=== PATIENT | male | born 1950 | race Caucasian/White ===

== ENCOUNTER 2017-08-29 13:10 | Observation (INO) | payer OTHER, MEDICARE ==
[~2017-08-29] VITALS: Ht 177.8 cm; Wt 72.9 kg
[~2017-08-29 13:10] MED LIST: AMOX500 PO; ASPI325 PO; ASPI500 PO; CITA20 PO; CLIN300 PO; CLOP75 PO; CYCL10 PO; DULO60 PO; HYDACE10B PO; HYDACE5 PO; HYDACE5325 PO; ISODIN10 PO; LEVSOD125 PO; LEVSOD150; LISI5 PO; METO100ER PO; METO25 PO; METOPROLOL PO; NEBI10 PO; NITR.4TPA TOP; Nitrostat0.4 MG SL; OXYACE5T PO; PRAV20 PO; Prinivil10 MG PO; RANO500T PO; RXOXYACE PO; SIMV40 PO; Synthroid25 MCG PO; TRAZ100; TRAZ100 PO; TRAZ50 PO; [UNRECOGNIZED DRUG - REMARK]
[2017-08-29 13:40] LABS: BASOPHILS ABSOLUTE AUTO 0.07 K/mm3 (0.00-0.23); BASOPHILS PERCENT AUTO 1 % (0-2); EOSINOPHILS ABSOLUTE AUTO 0.16 K/mm3 (0.00-0.68); EOSINOPHILS PERCENT AUTO 2 % (0-6); Hematocrit 45.1 % (37.0-53.0); Hemoglobin 15.4 g/dL (13.5-17.5); IMMATURE GRAN ABSOLUTE AUTO 0.06 K/mm3 (0.00-0.10); IMMATURE GRAN PERCENT AUTO 1 % (0-1); LYMPHOCYTES ABSOLUTE AUTO 1.43 K/mm3 (0.84-5.20); LYMPHOCYTES PERCENT AUTO 18 % (21-46); MONOCYTES ABSOLUTE AUTO 0.61 K/mm3 (0.16-1.47); MONOCYTES PERCENT AUTO 8 % (4-13); Mean Corpuscular HGB 31.2 pg (26.0-34.0); Mean Corpuscular HGB Conc 34.1 g/dL (31.5-36.5); Mean Corpuscular Volume 92 fL (80-100); Mean Platelet Volume 9.9 fL (9.1-12.4); NEUTROPHILS ABSOLUTE AUTO 5.81 K/mm3 (1.96-9.15); NEUTROPHILS PERCENT AUTO 71 % (41-73); Platelet Count 230 K/mm3 (150-400); RDW Coefficient Variation 11.8 % (11.7-14.2); RDW Standard Deviation 39.8 fL (35.1-46.3); Red Blood Cell Count 4.93 M/mm3 (4.30-5.90); White Blood Cell Count 8.14 K/mm3 (4.00-11.30)
[2017-08-29 13:55] LABS: Alanine Aminotransfer (ALT/SGP 30 U/L (12-78); Albumin, Blood 3.8 g/dL (3.4-5.0); Albumin/Globulin Ratio 1.1 (0.8-1.8); Alk Phos 112 U/L (50-136); Anion Gap 8 mmol/L (6-16); Aspartate Aminotrans (AST/SGOT 24 U/L (12-37); Bilirubin, Total 0.6 mg/dL (0.1-1.0); Blood Urea Nitrogen 14 mg/dL (8-24); Bun/Creatinine Ratio 15.3 (12.0-20.0); CO2, Blood 26 mmol/L (21-32); Calcium, Blood 8.3 mg/dL (8.5-10.1); Chloride, Blood 105 mmol/L (98-108); Creatinine, Blood 0.92 mg/dL (0.60-1.20); Globulin, Blood 3.5 g/dL (2.2-4.0); Glomerular Filtration Rate >60 (60-); Glucose, Blood 111 mg/dL (70-99); Potassium, Blood 4.1 mmol/L (3.5-5.5); Sodium, Blood 139 mmol/L (136-145); Total Protein, Blood 7.3 g/dL (6.4-8.2); Troponin I <0.015 ng/mL (0.000-0.040)
[2017-08-29 19:26] LABS: Troponin I <0.015 ng/mL (0.000-0.040)
[2017-08-29 19:28] LABS: Thyroid Stimulating Hormone 0.049 uIU/mL (0.360-4.800)
[2017-08-30 01:46] LABS: CHOL/HDL RATIO 6.3; Cholesterol 201 mg/dL (50-200); HDL Cholesterol 32 mg/dL (>39); LDL/HDL RATIO 4.1; Low Density Lipoprotein Chol 131 mg/dL (0-110); Triglycerides 188 mg/dL (30-160); Very Low Density Lipoprot Chol 37 mg/dL (6-32)
[2017-08-30 09:18] LABS: Free Thyroxine 1.41 ng/dL (0.70-1.60)
[2017-08-30 09:20] LABS: Triiodothyronine, Free 2.95 pg/mL (2.18-3.98)
[2017-08-31] MEDS ORDERED: Crestor20 MG PO (16:42)
[2017-08-31] MEDS ORDERED: METO25ER PO (16:43)
[2017-08-31] MEDS ORDERED: METO50 PO (16:44)
[2017-08-31] MEDS ORDERED: METO25 (16:45)
[2017-08-31] MEDS ORDERED: UBID100 PO (16:46)
== END 2017-08-31 17:15 | disposition home or self-care (01) ==
LOC: ER 13:10 → MEDS 13:11
PROVIDERS: Emergency Medicine; Family Medicine
DX: R07.9 Chest pain, unspecified (principal); I25.10 Atherosclerotic heart disease of native coronary artery without angina pectoris; I10 Essential (primary) hypertension; E03.9 Hypothyroidism, unspecified; E78.5 Hyperlipidemia, unspecified; F32.9 Major depressive disorder, single episode, unspecified; Z95.1 Presence of aortocoronary bypass graft; Z79.02 Long term (current) use of antithrombotics/antiplatelets; Z79.82 Long term (current) use of aspirin; Z79.899 Other long term (current) drug therapy; Z82.49 Family history of ischemic heart disease and other diseases of the circulatory system; Z87.891 Personal history of nicotine dependence
CPT/HCPCS: 36415; 71046; 78452; 80053; 80061; 84439; 84443; 84481; 84484; 85025; 93005; 93010; 93017; 96372; 96374; 96376; 99285; A9500; C9113; G0378; J1650; Q0167

== ENCOUNTER 2024-05-20 08:53 | Observation (INO) | payer OTHER ==
[2024-05-20] VITALS (10 sets, daily range): BP systolic 120–147; BP diastolic 73–94
[~2024-05-20] VITALS: Ht 175.3 cm; Wt 83.4 kg
[~2024-05-20 08:53] MED LIST changes: +Crestor20 MG PO; +METO25; +METO25ER PO; +METO50 PO; +UBID100 PO
[2024-05-20] MEDS ORDERED: Nitroglycerin 0.4 MG SUBL SL PRN (09:25)
[2024-05-20] MEDS ORDERED: Nitroglycerin/D5W 250 ML IV SCH (09:55)
[2024-05-20 10:01] LABS: BASOPHILS ABSOLUTE AUTO 0.06 K/mm3 (0.00-0.23); BASOPHILS PERCENT AUTO 1 % (0-2); EOSINOPHILS ABSOLUTE AUTO 0.13 K/mm3 (0.00-0.68); EOSINOPHILS PERCENT AUTO 2 % (0-6); Hematocrit 43.9 % (37.0-53.0); Hemoglobin 15.3 g/dL (13.5-17.5); IMMATURE GRAN ABSOLUTE AUTO 0.04 K/mm3 (0.00-0.10); IMMATURE GRAN PERCENT AUTO 1 % (0-1); LYMPHOCYTES ABSOLUTE AUTO 1.02 K/mm3 (0.84-5.20); LYMPHOCYTES PERCENT AUTO 16 % (21-46); MONOCYTES ABSOLUTE AUTO 0.66 K/mm3 (0.16-1.47); MONOCYTES PERCENT AUTO 11 % (4-13); Mean Corpuscular HGB Conc 34.9 g/dL (31.5-36.5); Mean Corpuscular Volume 89 fL (80-100); Mean Platelet Volume 9.7 fL (9.1-12.4); NEUTROPHILS ABSOLUTE AUTO 4.32 K/mm3 (1.96-9.15); NEUTROPHILS PERCENT AUTO 69 % (41-73); Platelet Count 194 K/mm3 (150-400); RDW Coefficient Variation 13.3 % (11.7-14.2); RDW Standard Deviation 43.4 fL (35.1-46.3); Red Blood Cell Count 4.93 M/mm3 (4.30-5.90); White Blood Cell Count 6.23 K/mm3 (4.00-11.30)
[2024-05-20 10:13] LABS: Bun/Creatinine Ratio 12.9 (12.0-20.0); Calcium, Blood 8.4 mg/dL (8.5-10.1); Creatinine, Blood 1.01 mg/dL (0.60-1.20); Magnesium, Blood 2.4 mg/dL (1.6-2.4); Potassium, Blood 4.6 mmol/L (3.5-5.5)
[2024-05-20] MEDS ORDERED: NS 1,000 ML IV SCH ×2 (10:30→12:40)
[2024-05-20] MEDS ORDERED: Heparin Sodium 5000 Units/ML 1ML MDV IV ONE (11:00)
[2024-05-20] MEDS ORDERED: FentaNYL Citrate 50 MCG/ML 2 ML Injection ONE ×2 (11:15→11:56)
[2024-05-20] MEDS ORDERED: Midazolam HCl 1MG / ML 2ML Vial ONE (11:15)
[2024-05-20] MEDS ORDERED: NS 2,000 ML IV ONE (11:15)
[2024-05-20] MEDS ORDERED: Heparin Sodium 1000 Units/ML 10ML MDV ONE (11:15)
[2024-05-20] MEDS ORDERED: NS 250 ML IV ONE (11:15)
[2024-05-20] MEDS ORDERED: Nitroglycerin 2 MG/20 ML BTL ONE (11:16)
[2024-05-20] MEDS ORDERED: Verapamil HCL 2.5 MG/ML 2ML Injection ONE (11:16)
[2024-05-20] MEDS ORDERED: Tirofiban HCL Monohydrate 3.75 MG/15 ML Vial ONE (11:18)
[2024-05-20] MEDS ORDERED: Atropine Sulfate 0.1 MG/ML 10ML SYR ONE (11:38)
[2024-05-20 12:08] LABS: Anti-Xa UFH, PHA Monitoring <0.10 IU/mL; Prothrombin Time Results 11.7 Sec (9.7-11.5)
[2024-05-20] MEDS ORDERED: Clopidogrel Bisulfate 75 MG Tab ONE ×2 (12:21)
[2024-05-20] MEDS ORDERED: Heparin Sodium 5000 Units/ML 1ML MDV XX ONE (13:13)
[2024-05-20] MEDS ORDERED: FLU VACC TS2024-25(6MOS UP)/PF 45 MCG/0.5 ML SYRINGE IM SCH (13:15)
[2024-05-20] MEDS ORDERED: TraZODone HCl 50 MG Tab PO PRN (13:45)
[2024-05-20] MEDS ORDERED: Acetaminophen/Codeine 300-30 mg PO PRN (14:00)
--- NOTE | 2024-05-20 18:42 | NUR ---
Summary. Pt arrived from analytical lab technician at approximately 1245. Pt alert and oriented, denied chest pain/sob/pressure. Pt on supine bedrest for angioseal placement post-procedure. at bedside upon arrival. Pt hard of hearing, uses hearing aids with good effect for communication. After six hours supine, pt sat up to eat evening meal. R/groin access site c/d/i with no bruising, hematoma or pain noted. VS stable. No acute events this afternoon, see chart for details.
[2024-05-20] MEDS ORDERED: TraZODone HCl 50 MG Tab PO SCH (21:00)
[2024-05-20] MEDS ORDERED: Metoprolol Tartrate 25 MG Tab PO SCH (21:00)
[2024-05-20] MEDS ORDERED: Atorvastatin 40 MG Tab PO SCH (21:00)
[2024-05-20] MEDS ORDERED: Docusate Sodium 100 MG Cap PO SCH (21:00)
[2024-05-21] VITALS (10 sets, daily range): BP systolic 101–139; BP diastolic 57–76
[2024-05-21] MEDS ORDERED: Heparin Sodium,Porcine 5,000 UNIT/0.5 ML SDV SC SCH
[2024-05-21 03:37] LABS: BASOPHILS ABSOLUTE AUTO 0.06 K/mm3 (0.00-0.23); BASOPHILS PERCENT AUTO 1 % (0-2); EOSINOPHILS ABSOLUTE AUTO 0.22 K/mm3 (0.00-0.68); EOSINOPHILS PERCENT AUTO 3 % (0-6); Hematocrit 43.6 % (37.0-53.0); Hemoglobin 15.2 g/dL (13.5-17.5); IMMATURE GRAN ABSOLUTE AUTO 0.03 K/mm3 (0.00-0.10); IMMATURE GRAN PERCENT AUTO 0 % (0-1); LYMPHOCYTES ABSOLUTE AUTO 1.06 K/mm3 (0.84-5.20); LYMPHOCYTES PERCENT AUTO 14 % (21-46); MONOCYTES PERCENT AUTO 8 % (4-13); Mean Corpuscular HGB 31.1 pg (26.0-34.0); Mean Corpuscular HGB Conc 34.9 g/dL (31.5-36.5); Mean Corpuscular Volume 89 fL (80-100); Mean Platelet Volume 9.8 fL (9.1-12.4); NEUTROPHILS ABSOLUTE AUTO 5.49 K/mm3 (1.96-9.15); NEUTROPHILS PERCENT AUTO 74 % (41-73); Platelet Count 183 K/mm3 (150-400); RDW Coefficient Variation 13.4 % (11.7-14.2); RDW Standard Deviation 43.7 fL (35.1-46.3); Red Blood Cell Count 4.89 M/mm3 (4.30-5.90); White Blood Cell Count 7.46 K/mm3 (4.00-11.30)
[2024-05-21 04:00] LABS: Bun/Creatinine Ratio 12.2 (12.0-20.0); Calcium, Blood 8.7 mg/dL (8.5-10.1); Creatinine, Blood 0.9 mg/dL (0.60-1.20); Potassium, Blood 4.1 mmol/L (3.5-5.5)
--- NOTE | 2024-05-21 04:41 | NUR ---
UPDATE @0000 FEMORAL SITE RIGHT SIDE CLEAN, DRY, NO BLOOD, NO NUMBNESS AND NO PAIN.
--- NOTE | 2024-05-21 04:42 | NUR ---
UPDATE @ 0400 FEMORAL SITE RIGHT, CLEAN, DRY, NO BLOOD DRESSING INTACT, NO NUMBNESS AND NO PAIN.
--- NOTE | 2024-05-21 05:53 | NUR ---
SHIFT SUMMARY PATIENT SLEPT THROUGH NIGHT. RIGHT FEMORAL SITE WAS DRY, NO BLOOD OR NUMBNESS, OR PAIN AND DRESSING INTACT. BILATERAL LUNGS CLEAR. SBP 120-130'S, HR 60-75. USING URINAL IN BED. IV R AC 20G AND L WRIST 20G. A&O X4. 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 CALL LIGHT WITHIN REACH.
[2024-05-21] MEDS ORDERED: Levothyroxine Sodium 0.175 MG TAB PO SCH (06:00)
[2024-05-21] MEDS ORDERED: Lisinopril 20 MG Tab PO SCH (09:00)
[2024-05-21] MEDS ORDERED: Aspirin 81 MG Chew PO SCH (09:00)
[2024-05-21] MEDS ORDERED: Clopidogrel Bisulfate 75 MG Tab PO SCH (09:00)
[2024-05-21] MEDS ORDERED: ROSUVASTATIN CA10 MG PO (09:49)
[2024-05-21] MEDS ORDERED: EUTHYROX175 MCG PO (09:50)
[2024-05-21] MEDS ORDERED: ASPI81CH PO (09:51)
--- NOTE | 2024-05-21 11:48 | NUR ---
Pt discharged at 10am. Peripheral IVs removed, all personal belongings returned to patient. Pt verbalized understanding of all discharge instructions and follow ups. No acute events this shift, vs stable at time of discharge. Pt ambulated independently out of unit.
== END 2024-05-21 10:20 | disposition home or self-care (01) ==
LOC: ER 08:53 → ICUE 08:54 → ER 11:15 → ICUE 11:15 → EDBEDREQ 11:23 → ICUE 12:19
PROVIDERS: Emergency Medicine; ADMIT Internal Medicine
PROC: 027034Z Dilation of Coronary Artery, One Artery with Drug-eluting Intraluminal Device, Percutaneous Approach (ICD-10-PCS; principal; 2024-05-20)
PROC: B2111ZZ Fluoroscopy of Multiple Coronary Arteries using Low Osmolar Contrast (ICD-10-PCS; 2024-05-20)
PROC: 4A023N7 Measurement of Cardiac Sampling and Pressure, Left Heart, Percutaneous Approach (ICD-10-PCS; 2024-05-20)
DX: I21.4 Non-ST elevation (NSTEMI) myocardial infarction (principal); M54.9 Dorsalgia, unspecified; G89.29 Other chronic pain; Z95.1 Presence of aortocoronary bypass graft; I25.10 Atherosclerotic heart disease of native coronary artery without angina pectoris; I10 Essential (primary) hypertension; E03.9 Hypothyroidism, unspecified; E78.5 Hyperlipidemia, unspecified; Z79.02 Long term (current) use of antithrombotics/antiplatelets; Z79.899 Other long term (current) drug therapy; Z79.890 Hormone replacement therapy; I25.2 Old myocardial infarction; M54.2 Cervicalgia; H91.90 Unspecified hearing loss, unspecified ear; Z90.89 Acquired absence of other organs; Z98.890 Other specified postprocedural states; Z98.1 Arthrodesis status; Z87.891 Personal history of nicotine dependence
CPT/HCPCS: 36415; 71045; 76937; 80048; 83735; 83880; 84484; 85025; 85347; 85520; 85610; 85730; 92953; 93005; 93010; 93308; 93321; 93459; 96365-59; 99152; 99153; 99285-25; A9270; C1725; C1760; C1769; C1874; C1887; C1894; C9604; C9606; J0461; J1644; J2250; J3010; J3246; J7030; J7050; Q9967

== ENCOUNTER 2025-04-27 00:10 | Observation (INO) | payer OTHER ==
[~2025-04-27] VITALS: Ht 175.3 cm; Wt 77.3 kg
[~2025-04-27 00:10] MED LIST changes: +ASPI81CH PO; +EUTHYROX175 MCG PO; +LEVSOD150 PO; +ROSUVASTATIN CA10 MG PO
[2025-04-27] MEDS ORDERED: NS 1,000 ML IV SCH ×2 (00:15→06:50)
[2025-04-27 01:06] LABS: BASOPHILS ABSOLUTE AUTO 0.07 K/mm3 (0.00-0.23); BASOPHILS PERCENT AUTO 1 % (0-2); EOSINOPHILS ABSOLUTE AUTO 0.25 K/mm3 (0.00-0.68); EOSINOPHILS PERCENT AUTO 4 % (0-6); Hematocrit 43.7 % (37.0-53.0); Hemoglobin 15.0 g/dL (13.5-17.5); IMMATURE GRAN ABSOLUTE AUTO 0.03 K/mm3 (0.00-0.10); IMMATURE GRAN PERCENT AUTO 1 % (0-1); LYMPHOCYTES ABSOLUTE AUTO 1.57 K/mm3 (0.84-5.20); LYMPHOCYTES PERCENT AUTO 24 % (21-46); MONOCYTES ABSOLUTE AUTO 0.60 K/mm3 (0.16-1.47); MONOCYTES PERCENT AUTO 9 % (4-13); Mean Corpuscular HGB Conc 34.3 g/dL (31.5-36.5); Mean Corpuscular Volume 89 fL (80-100); NEUTROPHILS ABSOLUTE AUTO 4.12 K/mm3 (1.96-9.15); NEUTROPHILS PERCENT AUTO 62 % (41-73); NRBC ABSOLUTE 0.00 K/mm3 (0.00-0.02); NRBC Auto 0.0 /100 WBC (0.0-0.2); Platelet Count 218 K/mm3 (150-400); RDW Coefficient Variation 12.4 % (11.7-14.2); RDW Standard Deviation 40.8 fL (35.1-46.3)
[2025-04-27 01:34] LABS: Alanine Aminotransfer (ALT/SGP 23.0 U/L (12-78); Albumin, Blood 3.3 g/dL (3.4-5.0); Albumin/Globulin Ratio 1.1 (0.8-1.8); Anion Gap 8.0 mmol/L (3-11); Aspartate Aminotrans (AST/SGOT 18.0 U/L (12-37); Bilirubin, Total 0.8 mg/dL (0.1-1.0); Blood Urea Nitrogen 17.0 mg/dL (8-24); CO2, Blood 19.0 mmol/L (21-32); Calcium, Blood 8.0 mg/dL (8.5-10.1); Chloride, Blood 113.0 mmol/L (98-108); Creatinine, Blood 0.88 mg/dL (0.60-1.20); Globulin, Blood 3.1 g/dL (2.2-4.0); Glucose, Blood 105.0 mg/dL (70-99); Magnesium, Blood 2.5 mg/dL (1.6-2.4); Potassium, Blood 4.2 mmol/L (3.5-5.5); Sodium, Blood 136.0 mmol/L (136-145); Total Protein, Blood 6.4 g/dL (6.4-8.2)
[2025-04-27 02:10] LABS: Influenza A, PCR NEGATIVE (NEGATIVE); Influenza B, PCR NEGATIVE (NEGATIVE); Resp Syncytial Virus, PCR NEGATIVE (NEGATIVE); SARS-Cov-2 (COVID-19) PCR, MMC NEGATIVE (NEGATIVE)
[2025-04-27] MEDS ORDERED: FLU VACC TS2025(65UP)/MF59C/PF 45 MCG/0.5 ML SYRINGE IM SCH (02:25)
[2025-04-27] MEDS ORDERED: Magnesium Hydroxide Conc 10 ML UDC PO PRN (02:30)
[2025-04-27 03:01] LABS: Thyroid Stimulating Hormone 10.2 uIU/mL (0.360-4.800)
[2025-04-27 04:34] VITALS: BP 140/87
--- NOTE | 2025-04-27 04:58 | NUR ---
PT RECENT ADMISSION. [place], WITH HEARING AIDS PRESENT. ABLE TO WALK INDEPENDENTLY HOWEVER DUE TO HIS RECENT SYNCOPE AND DIZZINESS I HAVE ASKED PATIENT TO ALERT US WITH THE CALL BORGES WHEN HE NEEDS TO USE THE RESTROOM AND HE HAS BEEN PROVIDED WITH A URINAL TO MINIMIZE THE AMOUNT OF GETTING UP NECESSARY FOR NOW. PATIENT REQUESTED THAT WE SHUT THE DOOR SO HE CAN GET SOME REST. NO MEDICATIONS GIVEN ON FLOOR OF NOW. VITALS WERE STABLE, RUNNING NSR ON TELE. BED IN LOW POSITION.
[2025-04-27 07:58] VITALS: BP 122/79
[2025-04-27] MEDS ORDERED: Enoxaparin 40 MG/0.4 ML SYR SC SCH (09:00)
[2025-04-27 11:22] VITALS: BP 135/84
[2025-04-27] MEDS ORDERED: METOPROLOL SUCC25 MG PO (12:01)
[2025-04-27] MEDS ORDERED: DULCOLAX400 MG/5 M PO (14:00)
[2025-04-27] MEDS ORDERED: DOCU100 PO (14:00)
[2025-04-27] MEDS ORDERED: MIRALAX1714 PO (14:01)
--- NOTE | 2025-04-27 16:34 | NUR ---
DC-1500 pt left in stable condition with and with all belongings.
== END 2025-04-27 15:00 | disposition home or self-care (01) ==
LOC: ER 00:10 → ERHOLD 00:11 → MEDS 00:11 → ENPENDDIS 13:18 → MEDS 15:00
PROVIDERS: Emergency Medicine; ADMIT Internal Medicine
DX: R55 Syncope and collapse (principal); I25.10 Atherosclerotic heart disease of native coronary artery without angina pectoris; I25.2 Old myocardial infarction; E03.9 Hypothyroidism, unspecified; I10 Essential (primary) hypertension; E78.5 Hyperlipidemia, unspecified; Z95.1 Presence of aortocoronary bypass graft; Z87.891 Personal history of nicotine dependence; Z79.82 Long term (current) use of aspirin; Z79.02 Long term (current) use of antithrombotics/antiplatelets; Z79.890 Hormone replacement therapy; Z79.899 Other long term (current) drug therapy
CPT/HCPCS: 36415; 80053; 83735; 83880; 84443; 84484; 85025; 87637; 93005; 93010; 96360; 96372; 99285-25; G0378; J1650; J7030